=== PATIENT | male | born 1945 | race Two or more races ===

== ENCOUNTER 2019-02-18 13:20 | Emergency (ER) | payer OTHER, MEDICAID ==
[~2019-02-18] VITALS: Ht 165.1 cm; Wt 85.3 kg
[2019-02-18 13:24] VITALS: Ht 165.1 cm; Wt 85.3 kg
[2019-02-18 18:55] VITALS: BP 131/78
== END 2019-02-18 18:55 | disposition home or self-care (01) ==
LOC: ED 13:20
DX: S20.211A Contusion of right front wall of thorax, initial encounter (principal); S50.311A Abrasion of right elbow, initial encounter; S09.8XXA Other specified injuries of head, initial encounter; I10 Essential (primary) hypertension; E11.9 Type 2 diabetes mellitus without complications; E78.00 Pure hypercholesterolemia, unspecified; W01.0XXA Fall on same level from slipping, tripping and stumbling without subsequent striking against object, initial encounter; Y93.89 Activity, other specified; Y92.89 Other specified places as the place of occurrence of the external cause; Y99.8 Other external cause status
CPT/HCPCS: 72072; 90715

== ENCOUNTER 2019-04-09 11:41 | Emergency (ER) | payer OTHER, MEDICAID ==
[~2019-04-09] VITALS: Ht 160 cm; Wt 87.5 kg
[2019-04-09 11:47] VITALS: Ht 160 cm; Wt 87.5 kg
[2019-04-09 13:37] VITALS: BP 128/70
== END 2019-04-09 13:37 | disposition home or self-care (01) ==
LOC: ED 11:41
DX: M54.6 Pain in thoracic spine (principal); I10 Essential (primary) hypertension; E11.9 Type 2 diabetes mellitus without complications; E78.00 Pure hypercholesterolemia, unspecified; W18.30XA Fall on same level, unspecified, initial encounter; Y93.89 Activity, other specified; Y92.89 Other specified places as the place of occurrence of the external cause; Y99.8 Other external cause status